=== PATIENT | male | born 1970 | race Caucasian/White ===

== ENCOUNTER 2024-05-31 08:21 | Emergency (ER) | payer BC, OTHER ==
[2024-05-31] MEDS ORDERED: Digoxin 0.5 MG/2 ML AMP ONE (08:43)
[2024-05-31] MEDS ORDERED: Aspirin Chewable 81 MG TAB ONE (08:43)
[2024-05-31] MEDS ORDERED: dilTIAZem 25 MG/5 ML VIAL ONE (08:44)
[2024-05-31] MEDS ORDERED: Sodium Chloride 0.9% 500 ML ONE (08:44)
[2024-05-31] MEDS ORDERED: Magnesium 2 GM/50 ML BAG (IN WATER) ONE (08:44)
[2024-05-31 08:59] LABS: #Basophils 0.2 thou/uL (0.0-0.2); #Eosinophils 0.5 thou/uL (0.0-0.7); #Lymphocytes 4.3 thou/uL (1.20-3.40); #Monocytes 0.9 thou/uL (0.11-0.59); #Neutrophils 4.2 thou/uL (1.40-6.50); %Basophils 1.8 % (0.0-1.0); %Eosinophils 4.6 % (0.0-10.0); %Lymphocytes 42.9 % (21.0-51.0); %Monocytes 8.9 % (0.0-10.0); %Neutrophils 41.8 % (42.0-75.0); Hematocrit 54.1 % (42.0-52.0); Hemoglobin 17.4 g/dL (14.0-18.0); Mean Corpuscular HGB CONC 32.2 g/dL (32.0-36.0); Mean Corpuscular Hemoglobin 28.8 pg (27.0-31.0); Mean Corpuscular Volume 89.5 fl (78.0-98.0); Mean Platelet Volume 9.3 fL (7.4-10.4); Platelet Count 334 10x3/uL (130-400); RBC Distribution Width 11.6 % (11.5-14.5); Red Blood Cell (RBC) Count 6.04 mill/uL (4.70-6.10); White Blood Cell (WBC) Count 10.1 10x3/uL (4.8-10.8)
[2024-05-31 09:04] LABS: ALT (SGPT) 26 U/L (8-55); AST (SGOT) 26 U/L (5-34); Albumin 4.6 g/dL (3.5-5.0); Alkaline Phosphatase 80 U/L (40-110); Anion Gap 15 mmol/L (10-20); BUN (Urea Nitrogen) 15 mg/dL (8.4-25.7); Bilirubin, Total 0.8 mg/dL (0.2-1.2); Calc. Creatinine Clearance 0 mL/min (70-130); Calcium 9.8 mg/dL (7.8-10.44); Carbon Dioxide 23 mmol/L (22-29); Chloride 106 mmol/L (98-107); Estimated GFR 70; Globulin 2.7 g/dL (2.4-3.5); Glucose 119 mg/dL (70-105); Lipase 28 U/L (8-78); Potassium 3.6 mmol/L (3.5-5.1); Protein, Total 7.3 g/dL (6.0-8.3); Sodium 140 mmol/L (136-145)
[2024-05-31 09:10] LABS: Troponin I Less than 0.010 ng/mL (< 0.028)
[2024-05-31] MEDS ORDERED: Enoxaparin 100 MG (1 mL) SYRINGE ONE (09:50)
== END 2024-05-31 11:53 | disposition home or self-care (01) ==
LOC: NAV ERS 08:21
DX: I48.91 Unspecified atrial fibrillation (principal)
CPT/HCPCS: 71045; 80053; 83690; 83880; 84443; 84484; 85025; 85379; 93005; 96365; 96372; 96375; J1160; J1650; J3475; J7030